=== PATIENT | male | born 1960 | race Caucasian/White ===

== ENCOUNTER 2017-08-24 23:04 | Emergency (ER) | payer OTHER ==
[~2017-08-24] VITALS: Ht 182.9 cm; Wt 122.9 kg
[2017-08-24] MEDS ORDERED: ASPIR 8181 MG PO (23:22)
[2017-08-24] MEDS ORDERED: BISOPROLOL FUMA10 MG PO (23:23)
[2017-08-24] MEDS ORDERED: NORVASC10 MG PO (23:24)
[2017-08-24] MEDS ORDERED: AVAPRO300 MG PO (23:24)
[2017-08-24] MEDS ORDERED: SYNTHROID100 MCG PO (23:25)
[2017-08-24] MEDS ORDERED: LIPITOR80 MG PO (23:25)
== END 2017-08-25 00:55 | disposition home or self-care (01) ==
LOC: ED 23:04
DX: N23 Unspecified renal colic (principal); I10 Essential (primary) hypertension; E03.9 Hypothyroidism, unspecified; Z79.82 Long term (current) use of aspirin; Z79.899 Other long term (current) drug therapy
CPT/HCPCS: 74176; 80053; 81001; 85025; 96374; 96375; 99284; J1170; J1885; J2405

== ENCOUNTER 2022-01-15 13:42 | Emergency (ER) | payer OTHER ==
[~2022-01-15] VITALS: Ht 182.9 cm; Wt 117.0 kg
[~2022-01-15 13:42] MED LIST: ASPIR 8181 MG PO; AVAPRO300 MG PO; BISOPROLOL FUMA10 MG PO; LIPITOR80 MG PO; NORVASC10 MG PO; SYNTHROID100 MCG PO
[2022-01-15] MEDS ORDERED: HYDROCODON-ACE1 EA11 PO (18:34)
[2022-01-15] MEDS ORDERED: LOMOTIL TABLET1 EACH PO (18:34)
== END 2022-01-15 19:03 | disposition home or self-care (01) ==
LOC: ED 13:42
DX: K52.9 Noninfective gastroenteritis and colitis, unspecified (principal); I10 Essential (primary) hypertension; E03.9 Hypothyroidism, unspecified; Z79.899 Other long term (current) drug therapy; Z79.82 Long term (current) use of aspirin
CPT/HCPCS: 36415; 80053; 81001; 83735; 85025; J1170; J7030

== ENCOUNTER 2022-06-05 05:55 | Day surgery (SDC) | payer OTHER ==
[~2022-06-05] VITALS: Ht 182.9 cm; Wt 119.5 kg
--- NOTE | ~2022-06-05 | EKG ---
[facility] [address] [place], [place] [address] Draft EK completed, results pending confirmation PATIENT NAME: RECINOSSUSAN Electrocardiogram DATE OF : 62 PHYSICIAN: PRELIMINARY REPORT #: [id number] REPORT IS CONFIDENTIAL AND NOT TO BE RELEASED WITHOUT AUTHORIZATION
--- NOTE | ~2022-06-05 | OR ---
[facility] [address] [place], [place] [address] Draft DATE OF OPERATION: 06/05/2022 SURGEON: Sameer Scott MD PREOPERATIVE DIAGNOSES: Deviated nasal septum, turbinate hypertrophy, nasal obstruction. POSTOPERATIVE DIAGNOSES: Deviated nasal septum, turbinate hypertrophy, nasal obstruction. PROCEDURES: 1. Septoplasty, 52852. 2. Submucous resection of right inferior turbinates, 46927. INDICATIONS: This is a 61-year-old gentleman who has had progressive nasal obstruction. The left side is the main part that plugs up especially, seems to be a problem at night when he is asleep. Even the right side has gradually gotten harder to breathe through. He has been using for years decongestants and various remedies to try and help him breathe better and sleep better. Because that was not good enough he presented to my office and examination showed a significantly deviated septum to the left side and some compensatory hypertrophy in the right inferior turbinates. Nasal steroid sprays were not enough. Decongestant was not enough, so surgery was indicated. PROCEDURE IN DETAIL: The patient was placed in a supine position, had an orotracheal intubation, was placed under general anesthesia. The patient's septum was injected with about 5 mL of 1% lidocaine with 1:100,000 epinephrine. Utilizing hydrodissection with a 30-gauge needle injecting mainly the left side but also on the bony portion of the right side. An incision was then made at the junction of the septum with the nasal floor lifting up mucoperichondrium and the submucosal plane then lifting up the mucoperiosteal past the bony junction. It was with a Aleida D knife and the septal button knife and blunt dissection done with the caudal dissection tool on that right side. A mucoperiosteal exposing the main part of the deviation which was bony. Withholding the cartilaginous septum over the right side. That deviated bony septum and vomer were cut with Backer scissors and pieces removed with Bro forceps and it is about half of the inferior strip of cartilaginous portion that was removed a couple of mm to make sure that anterior portion was mobile but yet still attached to the dorsal nasal skeleton. An osteotome and a chisel were used to remove the deviated pieces of the upper portion of the maxillary crest and then as much as the bony septum in the perpendicular plate of PATIENT NAME: SUSAN RECINOS OPERATIVE REPORT DATE OF : 62 REPORT #: [id number] PHYSICIAN: SAMEER SCOTT MD PCP: LEROY LAZO MD REPORT IS CONFIDENTIAL AND NOT TO BE RELEASED WITHOUT AUTHORIZATION [facility] [address] [place], [place] [address] Draft the ethmoid were deviated. Those areas were cut with Backer scissors instead of producing torsion in that critical area with Bro forceps. The flaps were then based down with 4-0 gut and the anterior incision closed with 4-0 chromic. Moving the septum over to the right, this would increase the nasal obstruction on the right, so these turbinates needed to be reduced. A stab incision was made anteriorly after injecting with a mL of lidocaine. Another few mL of Marcaine were placed into the septal flap before it was based down to give postop comfort. Then through that stab incision, the Ziebach dissection tool was used to dissect superiorly, laterally and medially exposing the turbinate bone. The Bro forceps were then placed into that turbinate bone and it was removed with gentle rocking force and going back far enough. Then, the curette was used to curette the bone into little pieces, removing it from the airway. The patient had some Telfa placed in the right side helping to keep that turbinate lateralized and the patient was awakened, sent to recovery room in good condition. Estimated blood loss was about 20 mL. There were no complications. The patient went to recovery room in good condition. Sameer Scott MD [facility]/CAROL /[id number] Copies: ~ PATIENT NAME: SUSAN RECINOS OPERATIVE REPORT DATE OF : 62 REPORT #: [id number] PHYSICIAN: SAMEER SCOTT MD PCP: LEROY LAZO MD REPORT IS CONFIDENTIAL AND NOT TO BE RELEASED WITHOUT AUTHORIZATION
[~2022-06-05 05:55] MED LIST changes: +CRESTOR20 MG PO; +HYDROCODON-ACE1 EA11 PO; +LOMOTIL TABLET1 EACH PO; +METFORMIN HCL500 MG PO; +OSTERA TABLET1 EACH PO
--- NOTE | 2022-06-05 09:23 | NUR ---
06/05/22 0923 Janet Montes De Oca 0904- PT ARRIVES TO PACU NONAROUSABLE TO STIMULI WITH AN OPA IN PLACE. RESP EVEN AND SHALLOW. OXYGEN SAT 84% ON RA. THE OXYGEN MASK WAS ON THE PT'S FACE BUT THE OXYGEN HAD DISCONNECTED FROM THE OXYGEN TANK. PT PLACED ON OXYGEN AT 15L VIA MASK. JAW THRUST BEING PERFORMED. OXYGEN SAT IMPROVED TO THE MID TO HIGH 90'S ON THIS. PT'S RIGHT NARE PACKED WITH TELFA FROM THE OR. NO BLEEDING NOTED AT THIS TIME. 0910- PT'S LUNGS ARE CLEAR THROUGHOUT. PT STARTS MOVING HIS ARMS AROUND WHILE LISTENING TO HIS LUNGS. INSTRUCTED PT TO OPEN HIS MOUTH TO REMOVE THE OPA. PT IS NOT ABLE TO FOLLOW THIS COMMAND. OPA LEFT IN PLACE. KEEPING PT'S ARMS AWAY FROM HIS FACE HE IS TRYING TO SCRATCH HIS EYES. 910- OPA ABLE TO BE REMOVED PT IS GAGGING ON IT. OXYGEN MASK REPLACED AT 15L. 1913- OXYGEN TITRATED DOWN TO 10L VIA MASK OXYGEN SAT IS 100% ON 15L. 916- PT IS STARTING TO BECOME MORE CLEAR AND IS FOLLOWING SIMPLE COMMANDS. DOES NOT ANSWER QUESTIONS. PT UPDATED THAT HIS SURGERY IS OVER AND ENCOURAGED TO TAKE DEEP BREATHS. PT IS ABLE TO DO THIS AND COUGHS. 09- OXYGEN TITRATED DOWN TO 6L VIA MASK OXYGEN SAT IS 100% ON 10L VIA MASK.
--- NOTE | 2022-06-05 10:24 | NUR ---
1010: PATIENT BACK IN DAY SURGERY UNIT FROM PACU. DENIES PAIN. MOUSTACHE DRESSING IN PLACE IS CLEAN, DRY AND INTACT. VS CHECKED. IV SITE WNL. PATIENT ON ROOM AIR AFTER VS CHECK. AT BEDSIDE. TOLERATING WATER. CALL LIGHT WITHIN REACH. SCDs ON.
--- NOTE | 2022-06-05 12:10 | NUR ---
1040: SANDWICH ORDERED FOR PATIENT. 1110: PATIENT TOLERATED SANDWICH. DENIES PAIN. MOUSTACHE DRESSING CLEAN, DRY AND INTACT. VS CHECKED. AT BEDSIDE. CALL LIGHT WITHIN REACH. 1120: DISCHARGE INSTRUCTIONS GIVEN TO PATIENT AND . PATIENT ASSISTED OOB AND TO WALK AROUND ROOM. GAIT STEADY. PATIENT GETTING DRESSED WITH HELP FROM . 1142: PATIENT DRESSED. WALKED INDEPENDENTLY TO BATHROOM. VOID WITHOUT DIFFICULTY. IV DC'D WNL. TIP INTACT. DRESSING APPLIED. PATIENT DISCHARGED TO HOME WITH VIA WHEELCHAIR.
--- NOTE | 2022-06-05 13:26 | NUR ---
PT ALERT, ORIENTED AND SUPPORTED BY HIS ZENON. PT SEEMS INFORMED, HIS INFORMED ME SHE HAD SAME SURGERY 5 YRS AGO AND HAS DONE WONDERS FOR HER. DR SALMON, OR STAFF READY, GAVE ENCOURAGEMENT AND BLESSING. ZENON REQUESTED A PAGER AND WILL REMAIN FOR DC. WILL FOLLOW
--- NOTE | 2022-06-06 16:15 | EKG ---
[facility] [address] [place] [address] Signed Sinus bradycardia Otherwise normal ECG When compared with ECG of 05-JUN-2022 07:20, (Unconfirmed) No significant change was found Confirmed by VENKATESH WINTERS MD ([id number]) on 06/06/2022 4:15:22 PM Electronically Signed By: VENKATESH WINTERS MD 06/06/22 1615 PATIENT NAME: RECINOSSUSAN Electrocardiogram DATE OF : 62 PHYSICIAN: VENKATESH WINTERS MD REPORT #: [id number] REPORT IS CONFIDENTIAL AND NOT TO BE RELEASED WITHOUT AUTHORIZATION
== END 2022-06-05 11:42 | disposition home or self-care (01) ==
LOC: DS 05:55
PROVIDERS: ATTEND Otolaryngology
PROC: 09SM4ZZ Reposition Nasal Septum, Percutaneous Endoscopic Approach (ICD-10-PCS; principal; 2022-06-05 07:30)
DX: J34.2 Deviated nasal septum (principal); J34.3 Hypertrophy of nasal turbinates; J34.89 Other specified disorders of nose and nasal sinuses
CPT/HCPCS: 93005; 93010; J0131; J1100; J2001; J2250; J2405; J2704; J3010; J7121

== ENCOUNTER 2024-05-23 06:19 | Day surgery (SDC) | payer OTHER ==
[~2024-05-23] VITALS: Ht 182.9 cm; Wt 127.3 kg
[~2024-05-23 06:19] MED LIST changes: +MIDAZOLAM HCL 5 MG/5 ML VIAL IV PRN; +VARDENAFIL HCL20 MG PO; +fentaNYL citrate 100 MCG/2 ML VIAL IV PRN
[2024-05-23 06:32] VITALS: BP 148/75
[2024-05-23] MEDS ORDERED: fentaNYL citrate 100 MCG/2 ML VIAL ONE (06:48)
[2024-05-23] MEDS ORDERED: MIDAZOLAM HCL 5 MG/5 ML VIAL ONE (06:48)
[2024-05-23] MEDS ORDERED: LIDOCAINE HCL 1% 5 ML SDV INJ ONE (07:00)
[2024-05-23] MEDS ORDERED: IBLOOD GLUCOSE TEST STRIP 1 EA TEST VI PRN (07:00)
[2024-05-23] MEDS ORDERED: LACTATED RINGER'S 1,000 ML IV SCH (07:00)
--- NOTE | 2024-05-23 07:36 | NUR ---
PT NOT AVAILABLE FOR VISIT. PROVIDED PRAYER.
--- NOTE | 2024-05-23 08:14 | NUR ---
05/23/24 0814 Nely Almeida 0807-PT ARRIVES TO PACU VIA STRETCHER, RESTING ON LT SIDE. PT A+OX4, DENIES PAIN OR NAUSEA, ENCOURAGED TO PASS GAS, VSS ON 3L VIA NC, RR EVEN AND UNLABORED. 0810-PT TITRATED TO RA, VS REMAIN STABLE. PT RESTING W/ EYES CLOSED, RR EVEN AND UNLABORED.
[2024-05-23 08:33] VITALS: BP 104/67
--- NOTE | 2024-05-24 17:24 | OR ---
[facility] [address] [place], [place] [address] Signed DATE OF OPERATION: 05/23/2024 SURGEON: Taylor Hogan MD PREOPERATIVE DIAGNOSIS: Colon screening, presumed history of polyps elsewhere. POSTOPERATIVE DIAGNOSIS: Extensive diverticulosis. No evidence of polyps. PROCEDURE: Total colonoscopy to cecum. ANESTHESIA: Intravenous sedation fentanyl 150 mcg, Versed 6 mg. 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 He is a patient of Dr. Lazo and has been referred for colonoscopy. His prior two colonoscopies were in [place]. He says he had polyps on colonoscopy five years ago in [place], although he is not entirely sure. He has no current symptoms of bleeding, diarrhea, or constipation, but is recommended to have colonoscopy at this time. The risk of bleeding, infection, and perforation related to colonoscopy was reviewed with him. He understands and wished to proceed. FINDINGS: Numerous diverticula were noted extending from the sigmoid more proximally including a few scattered diverticula of the right colon. He had no polyps or colitis or other abnormality of concern. DESCRIPTION OF PROCEDURE: The patient was brought to the endoscopy suite and placed in lateral decubitus position, given intravenous sedation to the point of slurred speech and nystagmus with full cardiopulmonary monitoring. Digital rectal examination was normal. An Olympus video colonoscope was passed in the rectum and manipulated throughout the colon noting numerous diverticula both small and large in the sigmoid colon. The scope was advanced ultimately to the cecum. Full intubation of the cecum was accomplished. The ileocecal valve and appendiceal orifice were normal. The scope was withdrawn from that point of examination throughout showed scattered diverticula including the right Electronically Signed By: TAYLOR HOGAN MD 05/24/24 1724 PATIENT NAME: SUSAN RECINOS OPERATIVE REPORT DATE OF : 62 REPORT #: [id number] PHYSICIAN: TAYLOR HOGAN MD PCP: LEROY LAZO MD REPORT IS CONFIDENTIAL AND NOT TO BE RELEASED WITHOUT AUTHORIZATION [facility] [address] [place], [place] [address] Signed and transverse colon and more extensive diverticula in the sigmoid colon. Retroflexed view of the rectum was normal. There was no evidence of polyps or colitis or other abnormality. He had only diverticulosis. Scope was removed. The patient was taken to the recovery room in good condition. CONCLUDING DIAGNOSIS: Extensive diverticulosis. PLAN: Recommend high-fiber diet and repeat colonoscopy in 10 years based on current guidelines. He will return to the ongoing care of Dr. Lazo. MD CALEB Barreto/[facility] /[id number] cc: Dr. Lazo Copies: ~ Electronically Signed By: TAYLOR HOGAN MD 05/24/24 1724 PATIENT NAME: SUSAN RECINOS OPERATIVE REPORT DATE OF : 62 REPORT #: [id number] PHYSICIAN: TAYLOR HOGAN MD PCP: LEROY LAZO MD REPORT IS CONFIDENTIAL AND NOT TO BE RELEASED WITHOUT AUTHORIZATION
== END 2024-05-23 08:45 | disposition home or self-care (01) ==
LOC: DS 06:19 → OPS 06:19 → DS 07:30 → OPS 08:45
PROVIDERS: ATTEND Surgery
PROC: 0DJD8ZZ Inspection of Lower Intestinal Tract, Via Natural or Artificial Opening Endoscopic (ICD-10-PCS; principal; 2024-05-23 07:30)
DX: Z12.11 Encounter for screening for malignant neoplasm of colon (principal); K57.30 Diverticulosis of large intestine without perforation or abscess without bleeding; E11.9 Type 2 diabetes mellitus without complications; I10 Essential (primary) hypertension; E03.9 Hypothyroidism, unspecified; G47.30 Sleep apnea, unspecified; E66.01 Morbid (severe) obesity due to excess calories; Z68.38 Body mass index [BMI] 38.0-38.9, adult; Z79.82 Long term (current) use of aspirin; Z79.890 Hormone replacement therapy; Z79.84 Long term (current) use of oral hypoglycemic drugs; Z79.899 Other long term (current) drug therapy
CPT/HCPCS: 99153; G0500; J2250; J3010; J7121

== ENCOUNTER 2024-07-16 15:32 | Emergency (ER) | payer OTHER ==
[~2024-07-16] VITALS: Ht 182.9 cm; Wt 126.5 kg
[~2024-07-16 15:32] MED LIST changes: -MIDAZOLAM HCL 5 MG/5 ML VIAL IV PRN; -fentaNYL citrate 100 MCG/2 ML VIAL IV PRN
[2024-07-16] MEDS ORDERED: HYDROCODONE/ACETA 5/325 TAB PO ONE (17:15)
[2024-07-16] MEDS ORDERED: ONDANSETRON 4 MG TAB ODT SL ONE (17:15)
[2024-07-16] MEDS ORDERED: HYDROCODONE BIT/ACETAMINOPHEN 5/325 MG 1 TAB HOME.PACK PO ONE (17:45)
[2024-07-16] MEDS ORDERED: ONDANSETRON ODT4 MG PO (17:57)
[2024-07-16] MEDS ORDERED: HYDROCODON-ACE1 EA10 PO (17:57)
[2024-07-16] MEDS ORDERED: ONDANSETRON 4 MG HOME.PACK SL ONE (18:00)
[2024-07-16 18:19] VITALS: BP 177/98
== END 2024-07-16 18:20 | disposition home or self-care (01) ==
LOC: ED 15:32
DX: S92.355A Nondisplaced fracture of fifth metatarsal bone, left foot, initial encounter for closed fracture (principal); S32.029A Unspecified fracture of second lumbar vertebra, initial encounter for closed fracture; S93.402A Sprain of unspecified ligament of left ankle, initial encounter; E03.9 Hypothyroidism, unspecified; I10 Essential (primary) hypertension; E78.00 Pure hypercholesterolemia, unspecified; W19.XXXA Unspecified fall, initial encounter; Z79.82 Long term (current) use of aspirin; Z79.84 Long term (current) use of oral hypoglycemic drugs; Z79.899 Other long term (current) drug therapy
CPT/HCPCS: 72131; 73080; 73610; 73630; 99284-25; A9270